=== PATIENT | female | born 1965 | race Caucasian/White ===

== ENCOUNTER 2017-01-28 16:12 | Emergency (ER) | payer BC ==
[2017-01-28 17:05] VITALS: BP 137/63
[2017-01-28] MEDS ORDERED: Tetan/Diph/Pertus SYR(Tdap)* 0.5 ML SYR(BOOSTRIX) use SYR IM ONE (17:40)
[2017-01-28] MEDS ORDERED: Ibuprofen TAB* 400 MG PO ONE (18:15)
[2017-01-28] MEDS ORDERED: Ibuprofen TAB* 400 MG ONE (18:16)
--- NOTE | 2017-01-28 18:18 | RAD ---
INDICATION: Heavy object dropped on foot. The patient now has dorsal midfoot pain COMPARISON: None. TECHNIQUE: 20 views of the right foot were obtained. FINDINGS: There is subcutaneous gas overlying the right great toe metatarsal distal head. The adequately corticated bones are properly aligned. Joint spaces appear maintained. No fracture, dislocation or focal bony abnormality is seen. IMPRESSION: EVIDENCE OF DORSAL FOOT SOFT TISSUE INJURY WITHOUT UNDERLYING BONY FRACTURE. If the patient's symptoms persist, follow-up imaging is recommended.
[2017-01-28] MEDS ORDERED: Lidocain 1% EPI 1:100,000 * 30 ML MDV INJ ONE (18:32)
[2017-01-28] MEDS ORDERED: Lidocaine 2% PF * 5 ML VIAL INJ ONE (18:48)
[2017-01-28] MEDS ORDERED: Cephalexin CAP* 500 MG PO ONE (19:20)
--- NOTE | 2017-01-28 19:46 | UC ---
Laceration HPI - HPI Summary HPI Summary: ONE HOUR [employer] WORK[employer] HEL[employer] WAS LIFTING HEAVY STONE PANEL AND IT FELL ONTO RIGHT FOOT. LACERATION TO (DORSUM OF) FOOT, WITH NUMBNESS IN FOOT AND TOES. PATIENT IS A DIABETIC. - History Of Current Complaint Chief Complaint: UCLowerExtremity Stated Complaint: CUT ON FOOT Time Seen by Provider: 01/28/17 17:20 Hx Obtained From: Patient Laceration Location: Foot - RIGHT Mechanism Of Injury: Blunt Trauma Onset/Duration: Sudden Onset, Lasting Hours Severity: Severe Aggravating Factors: Position, Movement - Allergies/Home Medications Allergies/Adverse Reactions: Allergies Allergy/AdvReac Type Severity Reaction Status Date / Time Penicillins Allergy Severe Hives Verified 01/28/17 17:05 Sulfa Antibiotics Allergy Severe Hives Verified 01/28/17 17:05 [email or web address] Allergy unk Uncoded 01/28/17 17:05 Home Medications: Home Medications Insulin Degludec [Tresiba Flextouch] 12 unit SC BID 01/28/17 [History Confirmed 01/28/17] Varenicline (NF) [Chantix 1 MG TAB (NF)] 1 mg 01/28/17 [History] PMH/Surg Hx/FS Hx/Imm Hx Previously Healthy: Yes - Surgical History Surgical History: Yes Surgery Procedure, Year, and Place: - Family History Known Family History: Negative: Blood Disorder - Social History Occupation: Employed Full-time Lives: With Family Alcohol Use: Rare Substance Use Type: None Smoking Status (MU): Former Smoker Type: Cigarettes Household Exposure Type: Pipe - Immunization History Most Recent Tetanus Shot: utd Review of Systems Constitutional: Negative Skin: Other - LACERATION RIGHT FOOT Eyes: Negative ENT: Negative Respiratory: Negative Cardiovascular: Negative Gastrointestinal: Negative Genitourinary: Negative Motor: Negative Neurovascular: Negative Musculoskeletal: Arthralgia, Myalgia Neurological: Paresthesia - RIGHT FOOT S/P INJURY Psychological: Negative Is Patient Immunocompromised?: No All Other Systems Reviewed And Are Negative: Yes Physical Exam Triage Information Reviewed: Yes Appearance: Well-Appearing, Well-Nourished, Pain Distress Vital Signs: Initial Vital Signs Temp 97.6 F 01/28/17 16:59 Pulse 74 01/28/17 16:59 Resp 18 01/28/17 16:59 BP 137/63 01/28/17 16:59 Pulse Ox 100 01/28/17 16:59 Vital Signs Reviewed: Yes Eye Exam: Normal ENT Exam: Normal ENT: Positive: Normal ENT inspection, Pharynx normal Dental Exam: Normal Neck exam: Normal Neck: Positive: Supple, Nontender, No Lymphadenopathy Respiratory Exam: Normal Respiratory: Positive: Chest non-tender, Lungs clear, Normal breath sounds, No respiratory distress, No accessory muscle use Cardiovascular Exam: Normal Cardiovascular: Positive: RRR, No Murmur, Pulses Normal, Brisk Capillary Refill Abdominal Exam: Normal Musculoskeletal: Positive: Strength Intact, ROM Intact, No Edema, Other: - PAIN DORSUM OF RIGHT FOOT WITH WEIGHT BEARING Neurological Exam: Normal Psychological Exam: Normal Skin: Positive: Other - RIGHT FOOT LACERATION Laceration Repair - Laceration Repair 1 Description: Irregular Laceration Size After Repair: Length (cm) - 4, Width (mm) - 10, Depth (mm) - 10 Modified For Repair: Yes Type Injection: Local Anesthesia Used: 2.0% Lido Cleansing Completed Via Routine Prep: No Irrigation With Pressure Irrigation Device: Yes Closure Material: Sutures - 7 X 4-0 PROLENE Closure Method: Single Layer Suture Of: Skin, SQ Suture Type: Prolene Laceration Course/Dx - Differential Dx - Laceration/Wound Differental Diagnoses: Fracture, Other Provider Diagnoses: CRUSH INJURY RIGHT FOOT. LACERATION RIGHT FOOT WITH REPAIR. DIABETES MELLITUS. Discharge - Discharge Plan Condition: Stable Disposition: HOME Prescriptions: Cephalexin CAP* [Keflex CAP*] 500 mg PO TID #28 cap Patient Education Materials: Laceration (ED), Paresthesia (ED), Crush Injury ( ED) Forms: *Work Release Referrals: Grant Coon MD [Primary Care Provider] - Lanre Bueno MD [Medical Doctor] - As Soon As Possible
== END 2017-01-28 19:45 | disposition home or self-care (01) ==
LOC: UCEAST 16:12
DX: S97.81XA Crushing injury of right foot, initial encounter (principal); S91.311A Laceration without foreign body, right foot, initial encounter; W20.8XXA Other cause of strike by thrown, projected or falling object, initial encounter; Y93.9 Activity, unspecified; Y92.9 Unspecified place or not applicable; Z23 Encounter for immunization; E11.9 Type 2 diabetes mellitus without complications; Z79.4 Long term (current) use of insulin; Z88.0 Allergy status to penicillin; Z88.2 Allergy status to sulfonamides; Z87.891 Personal history of nicotine dependence
CPT/HCPCS: 12001; 12002; 90471; 90715; 99212; 99213; A9270-GY; G0463

== ENCOUNTER 2017-06-19 13:50 | Emergency (ER) | payer SELFPAY ==
[2017-06-19 14:29] VITALS: BP 126/71
--- NOTE | 2017-06-19 15:03 | RAD ---
INDICATION: .Right right hand. TECHNIQUE: 4 views of the right hand were obtained. FINDINGS: There appears to be soft tissue swelling in the second and third fingers and dorsal to the distal metacarpal bones. No fracture is seen. There is mild osteoarthritic change in the metacarpal phalangeal, proximal and distal interphalangeal joints. IMPRESSION: SOFT TISSUE SWELLING, NO FRACTURE IS SEEN.
--- NOTE | 2017-06-19 15:21 | UC ---
Salvador Martínez Gabriel, scribed for John Spivey MD on 06/19/17 at 1447 . Bite Injury/Animal HPI - HPI Summary HPI Summary: This patient is a 52 year old F presenting to [facility] [place] with a dog bite on her right arm that occurred 2 days ago. She works at a vehicle safety inspector office and the dog is known the be UTD on all vaccines. The patient rates the pain 2/10 in severity. Patient reports a swollen and painful right hand. She states it is painful to try to close her hand and she is unable. Pt had RIG 6 years ago and her last tetanus was within the last five years. - History of Current Complaint Chief Complaint: UCBiteInjury Stated Complaint: DOG BITE Time Seen by Provider: 06/19/17 14:34 Hx Obtained From: Patient Severity Currently: Moderate Severity Initially: Moderate Pain Intensity: 2 Pain Scale Used: 0-10 Numeric Onset/Duration: Lasting Days, Still Present Type of Bite: Animal Has Animal Been Immunized?: Yes Character: Puncture Associated Signs And Symptoms: Positive: Limited ROM - cant close fully Animal Available for Observation: Yes - Allergies/Home Medications Allergies/Adverse Reactions: Allergies Allergy/AdvReac Type Severity Reaction Status Date / Time Penicillins Allergy Hives Verified 06/19/17 14:14 Sulfa (Sulfonamide Allergy Hives Verified 06/19/17 14:14 Antibiotics) [email or web address] Allergy Altered Uncoded 06/19/17 14:14 Mental Status Home Medications: Home Medications Aspirin 81 mg CHEW TAB* [Aspirin Low Dose TAB*] 81 mg PO DAILY 06/19/17 [ History Confirmed 06/19/17] Cholecalciferol TAB* [Vitamin D TAB*] 1,000 unit PO DAILY 06/19/17 [History Confirmed 06/19/17] Insulin Aspart [Novolog Flexpen] 100 unit SQ TID WITH MEALS 06/19/17 [History Confirmed 06/19/17] Levothyroxine TAB* [Synthroid TAB*] 175 mcg PO DAILY 06/19/17 [History Confirmed 06/19/17] Simvastatin [Zocor] 40 mg PO DAILY 06/19/17 [History Confirmed 06/19/17] PMH/Surg Hx/FS Hx/Imm Hx Endocrine History: Diabetes, Hypothyroidism Other History Of: Negative For: Anticoagulant Therapy - Surgical History Surgical History: Yes Surgery Procedure, Year, and Place: - Family History Known Family History: Positive: Diabetes Negative: Seizure Disorder, Blood Disorder - Social History Occupation: Employed Full-time Alcohol Use: Rare Substance Use Type: None Smoking Status (MU): Former Smoker Type: Cigarettes Household Exposure Type: Pipe - Immunization History Most Recent Tetanus Shot: utd Review of Systems Constitutional: Negative - fever Skin: Other - small lac on right hand due to bite Musculoskeletal: Other: - pain at right hand All Other Systems Reviewed And Are Negative: Yes Physical Exam - Summary Physical Exam Summary: General: well-appearing, no pain distress Skin: there is healing over the bite in the base of the right index finger on the dorsal and palmar aspect. The dorsal side is erythematous and mildly TTP. Head: normal Eyes: EOMI, UMAIR ENT: normal Neck: supple, nontender Respiratory: CTA, breath sounds present Cardiovascular: RRR Abdomen: soft, nontender Bowel: present Musculoskeletal: normal, strength/ROM intact Neurological: normal, sensory/motor intact, A&O x3 Psychological: affect/mood appropriate Triage Information Reviewed: Yes Vital Signs: Initial Vital Signs Temp 98.9 F 06/19/17 14:22 Pulse 69 06/19/17 14:22 Resp 16 06/19/17 14:22 BP 126/71 06/19/17 14:22 Pulse Ox 100 06/19/17 14:22 Vital Signs Reviewed: Yes Diagnostics - Radiology hand xray Radiology Interpretation Completed By: Radiologist - SOFT TISSUE SWELLING, NO FRACTURE IS SEEN. Dr. Spivey has reviwed this report. Bite Injury Course/Dx - Course Course Of Treatment: Patients medication reviewed this visit. THE FLEXOR SURFACE IS NOT INVOLVED AT THIS TIME. WE DISCUSSED CLOSE FOLLOW UP WITH ORTHOPEDICS. THE PATIENT HAS SEEN [facility] AND PLANS TO F/U WITH THEM. I STRESSED THE NEED FOR CLOSE FOLLOW UP AND TO GET SEEN AGAIN RIGHT AWAY FOR ANY WORSENING. - Differential Dx/Diagnosis Provider Diagnoses: INFECTED DOG BITE EXTENSOR SURFACE RIGHT HAND Discharge - Sign-Out/Discharge Documenting (check all that apply): Discharge/Admit/Transfer - Discharge Plan Condition: Stable Disposition: HOME Prescriptions: Clindamycin Cap(NF) [Clindamycin Cap 300 mg Cap(NF)] 300 mg PO Q6H #40 cap DOXYcycline CAP(*) [DOXYcycline 100MG CAP(*)] 100 mg PO BID #20 cap Patient Education Materials: Animal Bite (ED), Cellulitis (ED) Referrals: [facility] [Provider Group] Grant Coon MD [Primary Care Provider] - Additional Instructions: FOLLOW UP WITH ORTHOPEDICS. CALL TODAY TO ARRANGE FOLLOW UP IN 1-3 DAYS. RETURN TO THE EMERGENCY DEPARTMENT FOR ANY WORSENING OF YOUR CONDITION; THE REDNESS SPREADS, YOU FEEL ILL OR QUESTIONS OR CONCERNS. - Billing Disposition and Condition Condition: STABLE Disposition: HOME The documentation as recorded by the Salvador suazo Gabriel accurately reflects the service I personally performed and the decisions made by me, John Spivey MD.
== END 2017-06-19 15:30 | disposition home or self-care (01) ==
LOC: UCEAST 13:50
DX: S61.451A Open bite of right hand, initial encounter (principal); L08.9 Local infection of the skin and subcutaneous tissue, unspecified; W54.0XXA Bitten by dog, initial encounter; Y92.9 Unspecified place or not applicable; Z88.0 Allergy status to penicillin; Z88.2 Allergy status to sulfonamides; Z88.8 Allergy status to other drugs, medicaments and biological substances
CPT/HCPCS: 99212; G0463